=== PATIENT | female | born 1975 | race Caucasian/White ===

== ENCOUNTER 2020-09-07 16:36 | Emergency (ER) | payer BC, MEDICAID ==
[~2020-09-07] VITALS: Ht 154.9 cm; Wt 66.4 kg
[~2020-09-07 16:36] MED LIST: CYCL-394 PO; HYDR-569 PO; HYDR1TAB PO; PENI500T2 PO
[2020-09-07 17:25] LABS: URINE HCG NEGATIVE (NEG)
[2020-09-07 17:28] LABS: CLARITY,URINE SLIGHTLY CLOUDY (Clear); COLOR,URINE STRAW (Yellow); GLUCOSE, URINE NEGATIVE (Neg); KETONES,URINE NEGATIVE (Neg); LEUKOCYTE ESTERASE ,URINE NEGATIVE (Neg); NITRITES, URINE NEGATIVE (Neg); OCCULT BLOOD,URINE NEGATIVE (Neg); PROTEIN,URINE NEGATIVE (Neg); UROBILINOGEN,URINE 0.2 E.U/dL (0.2-1.0)
[2020-09-07 17:30] LABS: UA COLLECTION TYPE CLN CATCH MIDSTREAM
[2020-09-07 17:31] LABS: BASOPHILS % (AUTO) 0.4 % (0-1); EOSINOPHILS # (AUTO) 0.2 X10'3 (0-0.9); LYMPHOCYTES # (AUTO) 2.6 X10'3 (1.1-4.8); LYMPHOCYTES % (AUTO) 30.1 % (21-51); MEAN CORPUSCULAR HEMOGLOBIN 31.8 PG (27.0-31.0); MEAN CORPUSCULAR HGB CONC 34.1 g/dL (33.0-36.5); MEAN CORPUSCULAR VOLUME 93.3 FL (78-98); MEAN PLATELET VOLUME 6.8 FL (7.4-10.4); MONOCYTES # (AUTO) 0.5 X10'3 (0-0.9); MONOCYTES % (AUTO) 5.5 % (2-12); NEUTROPHILS # (AUTO) 5.3 X10'3 (1.8-7.7); PLATELET COUNT 326 X10'3 (140-440); RED CELL DISTRIBUTION WIDTH 13.5 % (11.5-14.5); WHITE BLOOD COUNT 8.5 X10'3 (4.5-11.0)
[2020-09-07 17:35] LABS: SQUAMOUS EPITHELIAL CELL,UR MODERATE /LPF (FEW)
[2020-09-07 17:36] LABS: BACTERIA,URINE FEW /HPF (Neg); RBC,URINE 0-2 /HPF (0-2); WBC,URINE 0-4 /HPF (0-4)
[2020-09-07 17:43] LABS: ALANINE AMINOTRANSFERASE 25 U/L (12-78); ALBUMIN 3.9 G/DL (3.4-5.0); ALBUMIN/GLOBULIN RATIO 1.1 (1.1-1.5); ALKALINE PHOSPHATASE 51 IU/L (46-116); ANION GAP 8 (8-16); ASPARTATE AMINO TRANSFERASE 13 U/L (10-37); BILIRUBIN,TOTAL 0.4 MG/DL (0.1-1.0); BLOOD UREA NITROGEN 9 MG/DL (7-18); BUN/CREATININE RATIO 13.8 (6.6-38.0); CALCIUM 8.6 MG/DL (8.5-10.1); CHLORIDE 105 MMOL/L (99-107); CREATININE 0.65 MG/DL (0.40-0.90); GLUCOSE 86 MG/DL (70-104); LIPASE 98 U/L (73-393); POTASSIUM 3.7 MMOL/L (3.5-5.1); SODIUM 137 MMOL/L (135-145); TOTAL CARBON DIOXIDE 23.7 MMOL/L (24-32); TOTAL PROTEIN 7.4 G/DL (6.4-8.2); eGFR > 90 ML/MIN
[2020-09-07] MEDS ORDERED: normal saline 1000ML IV soln IVB ONE (20:40)
[2020-09-07] MEDS ORDERED: ketorolac trometh. 30mg/ml inj. IV ONE (20:40)
--- NOTE | 2020-09-07 20:46 | NUR ---
pt to CT
--- NOTE | 2020-09-07 22:34 | NUR ---
report given by iona bernabe, assumed care. pt resting in bed.
[2020-09-08 00:07] VITALS: BP 135/74
== END 2020-09-08 00:22 | disposition home or self-care (01) ==
LOC: ER 16:36
DX: R10.31 Right lower quadrant pain (principal); K59.00 Constipation, unspecified; Z88.8 Allergy status to other drugs, medicaments and biological substances; Z79.2 Long term (current) use of antibiotics
CPT/HCPCS: 36415; 74176; 80053; 81001; 81025; 83690; 85025; 96361; 96374; 99284; J1885; J7030

== ENCOUNTER 2022-08-12 05:42 | Day surgery (SDC) | payer BC ==
[2022-08-12] VITALS (7 sets, daily range): BP systolic 121–155; BP diastolic 77–85
[~2022-08-12] VITALS: Ht 154.9 cm; Wt 67.0 kg
[~2022-08-12 05:42] MED LIST changes: +CALC-1215 PO; -CYCL-394 PO; -HYDR-569 PO; -HYDR1TAB PO; +MAGNESIUM POWDER PO; -PENI500T2 PO; +famotidine 20mg tablet PO ONE; +ringers solution, lacted 1,000 ML IV SCH
[2022-08-12 06:58] LABS: BASOPHILS # (AUTO) 0.1 X10'3 (0-0.2); BASOPHILS % (AUTO) 0.7 % (0-1); EOSINOPHILS # (AUTO) 0.2 X10'3 (0-0.9); EOSINOPHILS % (AUTO) 3.1 % (0-6); HEMATOCRIT 40.6 % (35.0-45.0); HEMOGLOBIN 13.8 g/dl (12.0-16.0); LYMPHOCYTES # (AUTO) 1.5 X10'3 (1.1-4.8); LYMPHOCYTES % (AUTO) 21.3 % (21-51); MEAN CORPUSCULAR HEMOGLOBIN 31.4 PG (27.0-31.0); MEAN CORPUSCULAR VOLUME 92.4 FL (78-98); MEAN PLATELET VOLUME 7.7 FL (7.4-10.4); MONOCYTES # (AUTO) 0.5 X10'3 (0-0.9); MONOCYTES % (AUTO) 6.4 % (2-12); NEUTROPHILS % (AUTO) 68.5 % (42-75); PLATELET COUNT 289 X10'3 (140-440); RED CELL DISTRIBUTION WIDTH 12.9 % (11.5-14.5); WHITE BLOOD COUNT 7.3 X10'3 (4.5-11.0)
[2022-08-12 07:09] LABS: ALANINE AMINOTRANSFERASE 14 U/L (12-78); ALBUMIN 3.4 G/DL (3.4-5.0); ALBUMIN/GLOBULIN RATIO 1.1 (1.1-1.5); ALKALINE PHOSPHATASE 48 IU/L (46-116); ANION GAP 9 (8-16); ASPARTATE AMINO TRANSFERASE 10 U/L (10-37); BILIRUBIN,TOTAL 0.5 MG/DL (0.1-1.0); BLOOD UREA NITROGEN 11 MG/DL (7-18); BUN/CREATININE RATIO 15.3 (10.0-20.0); CALCIUM 8.5 MG/DL (8.5-10.1); CHLORIDE 107 MMOL/L (99-107); CREATININE 0.72 MG/DL (0.40-0.90); GLUCOSE 96 MG/DL (70-104); POTASSIUM 3.8 MMOL/L (3.5-5.1); SODIUM 138 MMOL/L (135-145); TOTAL CARBON DIOXIDE 22.3 MMOL/L (24-32); TOTAL PROTEIN 6.5 G/DL (6.4-8.2); eGFR 86 ML/MIN
[2022-08-12] MEDS ORDERED: midazolam 1 mg/ML 2ml injection ONE (07:24)
[2022-08-12] MEDS ORDERED: fentaNYL/PF 50MCG/1 ML 2ML syringe ONE (07:24)
[2022-08-12] MEDS ORDERED: propofol inj 20 ML IV ONE (07:26)
[2022-08-12] MEDS ORDERED: ondansetron/PF 4mg/2ml inj ONE (07:26)
[2022-08-12] MEDS ORDERED: dexamethasone sod phosphate 4mg/ml inj. ONE (07:26)
[2022-08-12] MEDS ORDERED: LIDOcaine 2% (20mg/ml) 5ml vial ONE (07:26)
[2022-08-12] MEDS ORDERED: sevoflurane 250ml liquid IH ONE (07:33)
[2022-08-12] MEDS ORDERED: fentaNYL/PF 50MCG/1 ML 2ML syringe IV PRN ×2 (07:35)
[2022-08-12] MEDS ORDERED: morphine 2 MG/ML inj. syringe IV PRN (07:35)
[2022-08-12] MEDS ORDERED: hydrALAZINE 20mg/ml inj. IV PRN (07:35)
[2022-08-12] MEDS ORDERED: morphine 4 MG/ML inj SYRINge IV PRN (07:35)
[2022-08-12] MEDS ORDERED: ringers solution, lacted 1,000 ML IV SCH (07:35)
[2022-08-12] MEDS ORDERED: ondansetron/PF 4mg/2ml inj IV PRN (07:35)
[2022-08-12] MEDS ORDERED: labetalol 20mg/4ml (5mg/ml) syringe IV PRN (07:35)
--- NOTE | 2022-08-12 08:30 | NUR ---
Received from OR via , accompanied by Anesthesiologist ORESTES AND OR NURSE and report given by Anesthesiolgist. PT IS DROWSY YET ABLE TO RESPOND TO VERBAL COMMANDS. STATES PAIN A 06/20; MED GIVEN. INTERNAL PROCEDURE; NO INCISIONS OR DRESSINGS. VSS Addendum: 08/12/22 at 0937 by Katie Harmon RN Amended: Links added.
--- NOTE | 2022-08-12 09:30 | NUR ---
I HAVE REVIEWED D/C INSTRUCTIONS WITH PATIENT AND THEY HAVE VERBALIZED UNDERSTANDING OF INSTRUCTIONS. PATIENT D/C HOME WITH ALL BELONGINGS AND FAMILY GAVE TRANSPORT Addendum: 08/12/22 at 0940 by Katie Harmon RN Amended: Links added.
== END 2022-08-12 09:30 | disposition home or self-care (01) ==
LOC: PAS 05:42
PROVIDERS: ATTEND Obstetrics & Gynecology
DX: N92.0 Excessive and frequent menstruation with regular cycle (principal); F41.9 Anxiety disorder, unspecified; F32.A Depression, unspecified; F17.210 Nicotine dependence, cigarettes, uncomplicated; M19.049 Primary osteoarthritis, unspecified hand; Z98.51 Tubal ligation status; Z98.890 Other specified postprocedural states; Z88.8 Allergy status to other drugs, medicaments and biological substances; Z79.899 Other long term (current) drug therapy; Z83.3 Family history of diabetes mellitus; Z82.49 Family history of ischemic heart disease and other diseases of the circulatory system; Z80.1 Family history of malignant neoplasm of trachea, bronchus and lung
CPT/HCPCS: 36415; 58563; 80053; 82948; 85025; J1100; J2250; J2405; J2704; J3010; J3490; J7030; J7120; Z7506; Z7512; A4355; A4618; A4649